=== PATIENT | male | born 1960 | race African-American/Black ===

== ENCOUNTER 2021-07-14 19:04 | Emergency (ER) | payer OTHER ==
[~2021-07-14] VITALS: Ht 165.1 cm; Wt 83.0 kg
[~2021-07-14 19:04] MED LIST: AMLO10TA80 PO; ASPI-1497 PO; ATOR10TA PO; DOCU-150 PO; DUTA1CPM4 PO; FLUT1DIS3 IH; FLUT9.9S NS; POLY15DR31 BOTHEYE; TELM40TA7 PO; TOPUD PO
[2021-07-14] MEDS ORDERED: ACETAMINOPHEN 325MG TABLET PO ONE (19:45)
[2021-07-14] MEDS ORDERED: ALBUTEROL 6.7GM HFA INHALER ORI ONE (19:45)
[2021-07-14 19:58] LABS: BASOPHILS % 0.5 % (0.0-2.0); EOSINOPHILS % 4.1 % (0.0-5.0); HEMOGLOBIN. 14.6 g/dL (14.0-18.0); LYMPHOCYTES % 14.5 % (20.0-50.0); MEAN CORPUSCULAR HEMOGLOBIN 29.4 pg (28.0-32.0); MEAN CORPUSCULAR VOLUME 86.7 fL (80.0-94.0); MEAN PLATELET VOLUME 7.5 fl (7.4-10.4); MONOCYTES % 12.4 % (2.0-8.0); NEUTROPHILS % 68.5 % (40.0-76.0); PLATELET 232 x1000/uL (130-400); RED BLOOD CELL COUNT 4.96 mill/uL (4.7-6.1); RED CELL DISTRIBUTION WIDTH 13.9 % (11.6-14.6)
[2021-07-14 20:05] LABS: CHLORIDE 100 mEq/L (98-107)
[2021-07-14 20:09] LABS: ETHANOL BLOOD < 10 mg/dL
[2021-07-14 20:13] LABS: CREATINE KINASE 416 IU/L (39-308)
[2021-07-14] MEDS ORDERED: PREDNISONE 20MG TABLET PO NR (20:45)
[2021-07-14] MEDS ORDERED: P20 MT (22:14)
[2021-07-14] MEDS ORDERED: ALBU6.7H9 INH (22:14)
[2021-07-14 22:21] LABS: CLARITY URINE CLEAR (CLEAR); COLOR URINE YELLOW (YELLOW); KETONES URINE 1+ (NEGATIVE); LEUKOCYTE ESTERASE URINE NEGATIVE (NEGATIVE); NITRITE URINE NEGATIVE (NEGATIVE); OCCULT BLOOD URINE NEGATIVE (NEGATIVE); PH URINE 5.5 (4.5-8.0); PROTEIN URINE NEGATIVE (NEGATIVE); SPECIFIC GRAVITY URINE 1.026 (1.005-1.030); UROBILINOGEN URINE 0.2 E.U./dL (0.2-1.0)
[2021-07-14 22:25] VITALS: BP 127/66
[2021-07-14 22:31] LABS: *AMPHETAMINES SCREEN URINE NEGATIVE (NEGATIVE); *BARBITURATES SCREEN URINE NEGATIVE (NEGATIVE); *BENZODIAZEPINES SCREEN URINE NEGATIVE (NEGATIVE); *COCAINE SCREEN URINE NEGATIVE (NEGATIVE)
[2021-07-14 22:32] LABS: CANNABINOID URINE SCREEN NEGATIVE (NEGATIVE); METHADONE URINE SCREEN NEGATIVE (NEGATIVE); OPIATES URINE SCREEN NEGATIVE (NEGATIVE); PHENCYCLIDINE URINE SCREEN NEGATIVE (NEGATIVE)
== END 2021-07-14 22:35 | disposition home or self-care (01) ==
LOC: ER 19:04 → CANBEDREQ 07-15 02:35
DX: J45.901 Unspecified asthma with (acute) exacerbation (principal); B34.9 Viral infection, unspecified; I10 Essential (primary) hypertension; E78.00 Pure hypercholesterolemia, unspecified; Z20.822 Contact with and (suspected) exposure to COVID-19; Z96.649 Presence of unspecified artificial hip joint; Z79.82 Long term (current) use of aspirin
CPT/HCPCS: 36415; 71045; 80053; 80305; 80320; 81003; 82550; 83605; 83690; 83880; 84145; 84484; 85025; 86140; 87040; 87086; 87426; 87804; 93005; 94640; 99285; J7512; G0480

== ENCOUNTER 2021-10-16 19:45 | Emergency (ER) | payer OTHER ==
[~2021-10-16] VITALS: Ht 165.1 cm; Wt 82.0 kg
[~2021-10-16 19:45] MED LIST changes: +ALBU6.7H9 INH; +P20 MT
[2021-10-16] MEDS ORDERED: MORPHINE SULFATE 4 MG/ML CPJ (NOT FOR IM USE) IV STA (19:50)
[2021-10-16 21:00] LABS: BASOPHILS % 0.4 % (0.0-2.0); EOSINOPHILS % 0.6 % (0.0-5.0); LYMPHOCYTES % 14.3 % (20.0-50.0); MEAN CORPUSCULAR HEMOGLOBIN 29.3 pg (28.0-32.0); MEAN CORPUSCULAR VOLUME 87.8 fL (80.0-94.0); MEAN PLATELET VOLUME 7.6 fl (7.4-10.4); MONOCYTES % 14.3 % (2.0-8.0); NEUTROPHILS % 70.4 % (40.0-76.0); PLATELET 223 x1000/uL (130-400); RED BLOOD CELL COUNT 4.79 mill/uL (4.7-6.1)
[2021-10-16 21:07] LABS: CHLORIDE 105 mEq/L (98-107)
[2021-10-16] MEDS ORDERED: MORPHINE SULFATE 4 MG/ML CPJ (NOT FOR IM USE) IV NR (22:50)
[2021-10-17] MEDS ORDERED: METHOCARBAMOL 500MG TABLET PO ONE (01:00)
[2021-10-17] MEDS ORDERED: KETOROLAC 30MG/ML VIAL IM ONE (01:00)
[2021-10-17 01:10] VITALS: BP 116/88
[2021-10-17] MEDS ORDERED: METH-653 MT (02:19)
[2021-10-17] MEDS ORDERED: GABA300C MT (02:19)
[2021-10-17 02:55] LABS: CLARITY URINE CLEAR (CLEAR); COLOR URINE YELLOW (YELLOW); PROTEIN URINE TRACE (NEGATIVE)
[2021-10-17 02:56] LABS: KETONES URINE 2+ (NEGATIVE); LEUKOCYTE ESTERASE URINE NEGATIVE (NEGATIVE); NITRITE URINE NEGATIVE (NEGATIVE); OCCULT BLOOD URINE NEGATIVE (NEGATIVE); UROBILINOGEN URINE 0.2 E.U./dL (0.2-1.0)
== END 2021-10-17 02:34 | disposition home or self-care (01) ==
LOC: ER 19:45
DX: M54.40 Lumbago with sciatica, unspecified side (principal); I10 Essential (primary) hypertension; N40.0 Benign prostatic hyperplasia without lower urinary tract symptoms; Z96.649 Presence of unspecified artificial hip joint; Z79.82 Long term (current) use of aspirin
CPT/HCPCS: 36415; 80053; 81003; 83605; 84145; 85025; 86140; 87040; 87086; 93005; 96372; 96374; 99284; J1885; J2270

== ENCOUNTER 2022-06-22 13:51 | Emergency (ER) | payer MEDICAID, OTHER ==
[~2022-06-22] VITALS: Ht 172.7 cm; Wt 91.0 kg
[~2022-06-22 13:51] MED LIST changes: +ALBU6.7H3 INH; -ALBU6.7H9 INH; +GABA300C MT; +METH-653 MT
[2022-06-22] MEDS ORDERED: ASPIRIN 325MG EC TABLET PO NR (15:30)
[2022-06-22 15:55] LABS: BASOPHILS % 0.9 % (0.0-2.0); EOSINOPHILS % 6.8 % (0.0-5.0); HEMATOCRIT. 46.9 % (42.0-52.0); HEMOGLOBIN. 15.7 g/dL (14.0-18.0); LYMPHOCYTES % 33.2 % (20.0-50.0); MEAN CORPUSCULAR HEMOGLOBIN 29.2 pg (28.0-32.0); MEAN CORPUSCULAR VOLUME 87.1 fL (80.0-94.0); MEAN PLATELET VOLUME 7.3 fl (7.4-10.4); NEUTROPHILS % 49.1 % (40.0-76.0); PLATELET 229 x1000/uL (130-400); RED BLOOD CELL COUNT 5.39 mill/uL (4.7-6.1); RED CELL DISTRIBUTION WIDTH 14.3 % (11.6-14.6)
[2022-06-22 16:03] LABS: CHLORIDE 103 mEq/L (98-107)
[2022-06-22 16:16] LABS: ETHANOL BLOOD < 10 mg/dL
[2022-06-22 16:21] LABS: *AMPHETAMINES SCREEN URINE NEGATIVE (NEGATIVE); *BARBITURATES SCREEN URINE NEGATIVE (NEGATIVE); *BENZODIAZEPINES SCREEN URINE NEGATIVE (NEGATIVE); *COCAINE SCREEN URINE NEGATIVE (NEGATIVE); CANNABINOID URINE SCREEN NEGATIVE (NEGATIVE); METHADONE URINE SCREEN NEGATIVE (NEGATIVE); OPIATES URINE SCREEN NEGATIVE (NEGATIVE); PHENCYCLIDINE URINE SCREEN NEGATIVE (NEGATIVE)
[2022-06-22 18:30] VITALS: BP 150/91
[2022-06-22] MEDS ORDERED: N325 SL (19:07)
== END 2022-06-22 19:35 | disposition home or self-care (01) ==
LOC: ER 13:51
DX: I20.9 Angina pectoris, unspecified (principal); I10 Essential (primary) hypertension; E78.00 Pure hypercholesterolemia, unspecified; Z96.649 Presence of unspecified artificial hip joint
CPT/HCPCS: 36415; 71045; 80053; 80305; 80320; 83880; 84484; 85025; 93005; 99285; G0480

== ENCOUNTER 2023-04-01 11:38 | Emergency (ER) | payer OTHER ==
[~2023-04-01] VITALS: Ht 167.6 cm; Wt 82.0 kg
[~2023-04-01 11:38] MED LIST changes: +N325 SL
[2023-04-01 11:42] VITALS: O2SAT 96
[2023-04-01 12:18] LABS: CLARITY URINE CLOUDY (CLEAR); COLOR URINE ORANGE (YELLOW); GLUCOSE URINE NEGATIVE (NEGATIVE); KETONES URINE NEGATIVE (NEGATIVE); LEUKOCYTE ESTERASE URINE 2+ (NEGATIVE); NITRITE URINE NEGATIVE (NEGATIVE); OCCULT BLOOD URINE 3+ (NEGATIVE); PH URINE 5.5 (4.5-8.0); PROTEIN URINE 2+ (NEGATIVE); SPECIFIC GRAVITY URINE 1.022 (1.005-1.030)
[2023-04-01 12:33] LABS: MUCUS URINE 1+ /lpf (NONE/TRACE)
[2023-04-01 12:34] LABS: SQUAMOUS EPITHELIAL CELL URINE RARE /lpf (RARE/1+)
[2023-04-01 12:35] LABS: BACTERIA URINE TRACE; RBC URINE TNTC /hpf (0-2)
[2023-04-01 12:40] LABS: HEMATOCRIT. 39.7 % (42.0-52.0); HEMOGLOBIN. 13.1 g/dL (14.0-18.0); MEAN CORPUSCULAR HEMOGLOBIN 28.6 pg (28.0-32.0); MEAN CORPUSCULAR HGB CONC 32.9 g/dL (31.0-37.0); MEAN CORPUSCULAR VOLUME 86.7 fL (80.0-94.0); MEAN PLATELET VOLUME 7.3 fl (7.4-10.4); PLATELET 209 x1000/uL (130-400); RED BLOOD CELL COUNT 4.57 mill/uL (4.7-6.1); RED CELL DISTRIBUTION WIDTH 13.8 % (11.6-14.6); WHITE BLOOD COUNT 18.4 x1000/uL (4.5-11.0)
[2023-04-01 12:41] LABS: DIFFERENTIAL COMMENT 1
[2023-04-01 12:53] LABS: D-DIMER 2.76 mg/L FEU (<0.50); PROTHROMBIN TIME 11.1 sec (9.6-11.0)
[2023-04-01] MEDS ORDERED: SODIUM CHLORIDE 0.9% 1,000 ML IV ONE ×2 (13:15→18:00)
[2023-04-01 13:21] LABS: INDEX HEMOLYSI 1 (1-3); INDEX ICTERIC 1 (1-4); INDEX LIPEMIC 1 (1-3)
[2023-04-01 13:22] LABS: ALBUMIN 2.7 g/dL (3.4-5.0); CALCIUM 8.1 mg/dL (8.5-10.1); CARBON DIOXIDE 24 mEq/L (21-32); CHLORIDE 104 mEq/L (98-107); POTASSIUM 3.7 mEq/L (3.5-5.1); SODIUM 136 mEq/L (136-145)
[2023-04-01 13:30] LABS: ALANINE AMINOTRANSFERASE 211 IU/L (13-61); ASPARTATE AMINOTRANSFERASE 119 IU/L (15-37); BILIRUBIN TOTAL 0.9 mg/dL (0.1-1.0); CREATININE 0.8 mg/dL (0.6-1.3); GLUCOSE 112 mg/dL (70-105); NT PRO B-TYPE NATRIURETIC PEP 376 pg/mL (5-125); PROTEIN TOTAL 6.6 g/dL (6.0-8.3); TROPONIN I HIGH SENSITIVITY 11 ng/L (<78); UREA NITROGEN BLOOD 10 mg/dL (7-21)
[2023-04-01 13:32] LABS: PLATELET ESTIMATE NORMAL
[2023-04-01] MEDS ORDERED: CEFTRIAXONE 1GM PREMIX 50 ML IV ONE (13:45)
[2023-04-01] MEDS ORDERED: AMOX1TAB16 MT (17:59)
[2023-04-01 19:41] VITALS: BP 134/74; PULSE 85; RESP 19; TEMP 98.3
== END 2023-04-01 20:07 | disposition home or self-care (01) ==
LOC: ER 11:38 → EDBEDREQ 13:51 → ER 20:07
DX: N39.0 Urinary tract infection, site not specified (principal); D72.829 Elevated white blood cell count, unspecified; E78.00 Pure hypercholesterolemia, unspecified; I10 Essential (primary) hypertension; Z98.890 Other specified postprocedural states
CPT/HCPCS: 80053; 81003; 83880; 85025; 85379; 85610; 84484; 36415; 71045; 71275; 93005; 96361; 96365; 99285; Q9967; J0696; J7030; Z7610 ×2

== ENCOUNTER 2023-05-23 11:57 | Emergency (ER) | payer OTHER ==
[~2023-05-23] VITALS: Ht 165.1 cm; Wt 82.0 kg
[~2023-05-23 11:57] MED LIST changes: +AMOX1TAB16 MT
[2023-05-23 12:12] VITALS: O2SAT 99
[2023-05-23 13:30] LABS: BASOPHILS % 1.1 % (0.0-2.0); HEMATOCRIT. 40.4 % (42.0-52.0); HEMOGLOBIN. 13.4 g/dL (14.0-18.0); LYMPHOCYTES % 29.3 % (20.0-50.0); MEAN CORPUSCULAR HEMOGLOBIN 29.3 pg (28.0-32.0); MEAN CORPUSCULAR HGB CONC 33.1 g/dL (31.0-37.0); MEAN CORPUSCULAR VOLUME 88.4 fL (80.0-94.0); MEAN PLATELET VOLUME 7.3 fl (7.4-10.4); MONOCYTES % 10.3 % (2.0-8.0); NEUTROPHILS % 47.3 % (40.0-76.0); PLATELET 309 x1000/uL (130-400); RED BLOOD CELL COUNT 4.57 mill/uL (4.7-6.1); RED CELL DISTRIBUTION WIDTH 14.8 % (11.6-14.6); WHITE BLOOD COUNT 6.7 x1000/uL (4.5-11.0)
[2023-05-23 14:41] LABS: ALANINE AMINOTRANSFERASE 24 IU/L (10-49); ALBUMIN 3.8 g/dL (3.2-4.8); ASPARTATE AMINOTRANSFERASE 24 IU/L (<34); BILIRUBIN TOTAL 0.5 mg/dL (0.1-1.0); CALCIUM 9.2 mg/dL (8.7-10.4); CARBON DIOXIDE 31 mEq/L (21-32); CHLORIDE 102 mEq/L (98-107); CREATININE 0.9 mg/dL (0.6-1.3); GLUCOSE 95 mg/dL (70-105); POTASSIUM 4.4 mEq/L (3.5-5.1); PROTEIN TOTAL 7.2 g/dL (6.0-8.3); SODIUM 138 mEq/L (136-145); TROPONIN I HIGH SENSITIVITY 6 ng/L (3.0-53); UREA NITROGEN BLOOD 14 mg/dL (9-23)
[2023-05-23 15:41] LABS: T4 FREE 0.92 ng/dL (0.89-1.76); THYROID STIMULATING HORMONE 1.13 uIU/mL (0.55-4.78)
[2023-05-23 17:20] VITALS: BP 154/87; PULSE 82; RESP 16; TEMP 98.6
== END 2023-05-23 17:52 | disposition home or self-care (01) ==
LOC: ER 11:57
DX: F41.9 Anxiety disorder, unspecified (principal); E78.00 Pure hypercholesterolemia, unspecified; Z79.899 Other long term (current) drug therapy; Z98.890 Other specified postprocedural states
CPT/HCPCS: 80053; 84439; 84443; 85025; 85379; 84484; 36415; 71045; 93005; 99291; Z7610; C1893

== ENCOUNTER 2024-08-26 16:32 | Emergency (ER) | payer OTHER ==
[~2024-08-26] VITALS: Ht 165.1 cm; Wt 82.0 kg
[~2024-08-26 16:32] MED LIST changes: -DOCU-150 PO; +DOCU-422 PO
[2024-08-26 16:33] VITALS: O2SAT 98
[2024-08-26 16:36] VITALS: BP 117/65; PULSE 94; RESP 16; TEMP 36.7; O2SAT 97
[2024-08-26 18:23] LABS: HEMATOCRIT. 30.9 % (42.0-52.0); HEMOGLOBIN. 10.2 g/dL (14.0-18.0); MEAN CORPUSCULAR HGB CONC 33.1 g/dL (31.0-37.0); MEAN CORPUSCULAR VOLUME 90.8 fL (80.0-94.0); MEAN PLATELET VOLUME 6.3 fl (7.4-10.4); PLATELET 552 x1000/uL (130-400); RED CELL DISTRIBUTION WIDTH 14.8 % (11.6-14.6); WHITE BLOOD COUNT 9.6 x1000/uL (4.5-11.0)
[2024-08-26 18:26] LABS: DIFFERENTIAL COMMENT 1
[2024-08-26 18:29] LABS: CHLORIDE 102 mEq/L (98-107); POTASSIUM 3.9 mEq/L (3.5-5.1); SODIUM 140 mEq/L (136-145)
[2024-08-26 18:30] LABS: CALCIUM 8.9 mg/dL (8.7-10.4); CARBON DIOXIDE 31 mEq/L (21-32)
[2024-08-26 18:35] LABS: CREATININE 0.8 mg/dL (0.6-1.3); GLUCOSE 132 mg/dL (70-105); UREA NITROGEN BLOOD 12 mg/dL (9-23)
[2024-08-26 18:37] LABS: TROPONIN I HIGH SENSITIVITY 5 ng/L (3.0-53)
[2024-08-26 21:06] LABS: CHLORIDE 102 mEq/L (98-107); POTASSIUM 4.4 mEq/L (3.5-5.1); SODIUM 138 mEq/L (136-145)
[2024-08-26 21:07] LABS: CARBON DIOXIDE 31 mEq/L (21-32)
[2024-08-26 21:08] LABS: CALCIUM 9.1 mg/dL (8.7-10.4)
[2024-08-26 21:10] LABS: D-DIMER 4.99 mg/L FEU (<0.50); INR 1.1; PARTIAL THROMBOPLASTIN TIME 27.1 sec (23.4-31.0); PROTHROMBIN TIME 11.6 sec (9.6-11.0)
[2024-08-26 21:12] LABS: CREATININE 0.9 mg/dL (0.6-1.3); GLUCOSE 104 mg/dL (70-105); UREA NITROGEN BLOOD 13 mg/dL (9-23)
[2024-08-26 21:51] LABS: ANISOCYTOSIS 1+; PLATELET ESTIMATE INCREASED
[2024-08-26] MEDS ORDERED: IOHEXOL-350 100 ML BOTTLE ONE (23:52)
== END 2024-08-26 22:27 | disposition home or self-care (01) ==
LOC: ER 16:32
DX: R06.02 Shortness of breath (principal); E78.00 Pure hypercholesterolemia, unspecified; I10 Essential (primary) hypertension; Z79.899 Other long term (current) drug therapy
CPT/HCPCS: 99285; 93970; 71275; 71045; 80048; 83880; 85025; 85379; 85610; 85730; 84484; 36415; 93005; Q9967